=== PATIENT | female | born 1960 | race African-American/Black ===

== ENCOUNTER → 2016-12-06 | Outpatient (CLI) | payer OTHER | LOC: RAD 08:19 | DX: Z12.31 Encounter for screening mammogram for malignant neoplasm of breast (principal) ==

== ENCOUNTER → 2017-01-06 | Outpatient (CLI) | payer OTHER | LOC: ULTRA 08:01 | DX: I10 Essential (primary) hypertension (principal); I71.4 Abdominal aortic aneurysm, without rupture ==

== ENCOUNTER → 2017-11-10 | Outpatient (CLI) | payer OTHER | LOC: CAT 08:45 | DX: J32.9 Chronic sinusitis, unspecified (principal) ==

== ENCOUNTER → 2018-07-10 | Outpatient (CLI) | payer OTHER | LOC: RAD 08:21 | DX: Z12.31 Encounter for screening mammogram for malignant neoplasm of breast (principal) ==

== ENCOUNTER → 2019-07-27 | Outpatient (CLI) | payer OTHER | LOC: RAD 08:09 | DX: Z12.31 Encounter for screening mammogram for malignant neoplasm of breast (principal) ==

== ENCOUNTER → 2020-08-07 | Outpatient (CLI) | payer OTHER | LOC: RAD 09:39 | PROVIDERS: ATTEND Family Medicine | DX: Z12.31 Encounter for screening mammogram for malignant neoplasm of breast (principal) ==

== ENCOUNTER → 2021-07-28 | Outpatient (CLI) | payer OTHER | LOC: RAD 08:13 | PROVIDERS: ATTEND Family Medicine | DX: Z12.31 Encounter for screening mammogram for malignant neoplasm of breast (principal); N64.89 Other specified disorders of breast ==